=== PATIENT | male | born 1955 | race American Indian/Alaskan Native ===

== ENCOUNTER 2024-11-22 09:09 | Emergency (ER) | payer SELFPAY ==
[2024-11-22 09:37] LABS: PLATELET COUNT,PLT 493 10^3/uL (150-450); RED BLOOD CELL COUNT 2.78 10^6/uL (4.6-6.2); WHITE BLOOD CELL COUNT,WBC 14.6 10^3/uL (5.0-10.0)
[2024-11-22 09:41] LABS: BASOPHILS PERCENT AUTO 0.1 % (0.0-1.0); EOSINOPHILS PERCENT AUTO 0.7 % (1.0-3.0); LYMPHOCYTES PERCENT AUTO 5.7 % (20.5-50.1); MONOCYTES PERCENT AUTO 10.2 % (2-8); NEUTROPHILS PERCENT AUTO 83.3 % (42.2-75.2)
[2024-11-22 09:56] LABS: INR 1.0 (0.9-1.2)
[2024-11-22 09:58] LABS: ALANINE AMINOTRANSFERASE,ALT 14 U/L (16-63); ASPARTATE AMNIOTRANSFERASE,AST 27 U/L (15-37); BILIRUBIN TOTAL 0.5 mg/dL (0.2-1.0); BLOOD UREA NITROGEN,BUN 14 mg/dL (7-18); CARBON DIOXIDE,CO2 23 mmol/L (21-32); CHLORIDE,CL 104 mmol/L (98-107); CREATININE 0.96 mg/dL (0.70-1.30); GLUCOSE RANDOM 101 mg/dL (70-99); POTASSIUM,K 3.9 mmol/L (3.5-5.1); PROTEIN TOTAL,TP 5.0 g/dL (6.4-8.2); SODIUM,NA 135 mmol/L (136-145)
[2024-11-22 10:02] LABS: A/G RATIO 0.52; ESTIMATED GFR 87 mL/min (>=60)
[2024-11-22 10:03] LABS: LACTIC ACID 2.7 mmol/L (0.4-2.0)
[2024-11-22 10:11] LABS: SEG NEUTROPHILS PERCENT MAN 84 % (42-75)
[2024-11-22 10:12] LABS: BAND PERCENT MAN 2 %; LYMPHOCYTES PERCENT MAN 6 % (20-50); MONOCYTES PERCENT MAN 8 % (2-8)
[2024-11-22] MEDS: Iopamidol 755 Mg/ML 100 ML Bottle IVPUSH ONE (11:08)
== END 2024-11-22 12:43 | disposition critical access hospital (66) ==
LOC: DL.ED 09:09
DX: K92.2 Gastrointestinal hemorrhage, unspecified (principal); R55 Syncope and collapse; C77.2 Secondary and unspecified malignant neoplasm of intra-abdominal lymph nodes; Z87.891 Personal history of nicotine dependence
CPT/HCPCS: 36415; 36430; 70450; 71045; 71260; 74177; 80053; 83605; 83735; 84484; 85025; 85610; 86850; 86900; 86901; 86920; 86922; 93005; 93010; 96361; 96374; 99285; 99291; J2470; J7030; P9016; Q9967

== ENCOUNTER 2024-12-10 00:05 | Emergency (ER) | payer SELFPAY ==
[2024-12-10 00:01] LABS: BASOPHILS PERCENT AUTO 0.0 % (0.0-1.0); EOSINOPHILS PERCENT AUTO 0.0 % (1.0-3.0); LYMPHOCYTES PERCENT AUTO 2.0 % (20.5-50.1); MONOCYTES PERCENT AUTO 7.5 % (2-8); NEUTROPHILS PERCENT AUTO 90.5 % (42.2-75.2); PLATELET COUNT,PLT 193 10^3/uL (150-450); RED BLOOD CELL COUNT 2.34 10^6/uL (4.6-6.2); WHITE BLOOD CELL COUNT,WBC 11.8 10^3/uL (5.0-10.0)
[~2024-12-10 00:05] MED LIST: Lactated Ringers 1,000 ML IV SCH
[2024-12-10 00:30] LABS: ALANINE AMINOTRANSFERASE,ALT 66.0 U/L (16-63); ASPARTATE AMNIOTRANSFERASE,AST 129.0 U/L (15-37); BILIRUBIN TOTAL 1.1 mg/dL (0.2-1.0); BLOOD UREA NITROGEN,BUN 30.0 mg/dL (7-18); CARBON DIOXIDE,CO2 22.0 mmol/L (21-32); CHLORIDE,CL 103.0 mmol/L (98-107); CREATININE 2.0 mg/dL (0.70-1.30); EST CRCL DRUG DOSING (CG) 31.04 mL/min; GLUCOSE RANDOM 101.0 mg/dL (70-99); POTASSIUM,K 3.8 mmol/L (3.5-5.1); PROTEIN TOTAL,TP 4.5 g/dL (6.4-8.2); SODIUM,NA 137.0 mmol/L (136-145)
[2024-12-10 00:31] LABS: A/G RATIO 0.32; ESTIMATED GFR 36.0 mL/min (>=60)
[2024-12-10 00:32] LABS: LACTIC ACID 3.9 mmol/L (0.4-2.0)
[2024-12-10 00:49] LABS: INR 1.1 (0.9-1.2); PTT,PARTIAL THROMBOPLSTIN TIME 27.8 SEC (22.0-34.0)
== END 2024-12-10 03:15 ==
LOC: DL.ED 00:05
DX: K92.2 Gastrointestinal hemorrhage, unspecified (principal)
CPT/HCPCS: 36415; 36430; 80053; 83605; 83735; 84484; 85025; 85610; 85730; 86850; 86900; 86901; 86920; 86922; 93010; 99285; 99291; 99292; P9016

== ENCOUNTER 2025-01-22 12:26 | Emergency (ER) | payer MEDICAID, OTHER ==
[2025-01-22 13:04] LABS: PLATELET COUNT,PLT 398 10^3/uL (150-450); RED BLOOD CELL COUNT 2.41 10^6/uL (4.6-6.2); WHITE BLOOD CELL COUNT,WBC 17.5 10^3/uL (5.0-10.0)
[2025-01-22 13:13] LABS: BASOPHILS PERCENT AUTO 0.1 % (0.0-1.0); EOSINOPHILS PERCENT AUTO 0.1 % (1.0-3.0); LYMPHOCYTES PERCENT AUTO 6.6 % (20.5-50.1); MONOCYTES PERCENT AUTO 9.0 % (2-8); NEUTROPHILS PERCENT AUTO 84.2 % (42.2-75.2)
[2025-01-22 13:24] LABS: ALANINE AMINOTRANSFERASE,ALT 12.0 U/L (16-63); ASPARTATE AMNIOTRANSFERASE,AST 20.0 U/L (15-37); BILIRUBIN TOTAL 0.6 mg/dL (0.2-1.0); BLOOD UREA NITROGEN,BUN 16.0 mg/dL (7-18); CARBON DIOXIDE,CO2 14.0 mmol/L (21-32); CHLORIDE,CL 108.0 mmol/L (98-107); CREATININE 1.69 mg/dL (0.70-1.30); EST CRCL DRUG DOSING (CG) 30.6 mL/min; GLUCOSE RANDOM 199.0 mg/dL (70-99); POTASSIUM,K 3.7 mmol/L (3.5-5.1); PROTEIN TOTAL,TP 4.9 g/dL (6.4-8.2); SODIUM,NA 140.0 mmol/L (136-145)
[2025-01-22 13:25] LABS: A/G RATIO 0.36; ESTIMATED GFR 44.0 mL/min (>=60)
[2025-01-22 13:40] LABS: SEG NEUTROPHILS PERCENT MAN 73 % (42-75)
[2025-01-22 13:42] LABS: BAND PERCENT MAN 14 %; LYMPHOCYTES PERCENT MAN 8 % (20-50); MONOCYTES PERCENT MAN 5 % (2-8)
[2025-01-22 13:43] LABS: PLATELET COUNT ESTIMATE ADEQUATE
[2025-01-22] MEDS ORDERED: Sodium Chloride 0.9% 10 ML Syringe FLUSH PRN (13:48)
[2025-01-22] MEDS: Octreotide 100 MCG/ML SDV SUBCUT ONE (14:09)
[2025-01-22] MEDS: Norepinephrine Bit/D5W Premix 4 MG/250 ML BAG IV SCH (14:30)
== END 2025-01-22 16:09 ==
LOC: DL.ED 12:26
DX: K92.2 Gastrointestinal hemorrhage, unspecified (principal)
CPT/HCPCS: 36415; 36430; 51702; 80053; 85025; 86850; 86900; 86901; 86920; 86922; 96365; 96366; 96372; 99283; 99285-25; J2354-JB-GY; J7030; P9016; P9017